=== PATIENT | male | born 1945 | race Caucasian/White ===

== ENCOUNTER 2019-05-25 12:03 | Day surgery (SDC) | payer MEDICARE, OTHER ==
[~2019-05-25] VITALS: Ht 185.4 cm; Wt 77.7 kg
[2019-05-25] VITALS (7 sets, daily range): BP systolic 123–148; BP diastolic 67–83
[2019-05-25] MEDS ORDERED: normal saline 1000ml 1,000 ML IV SCH (12:30)
[2019-05-25] MEDS ORDERED: CLOP75TA8 PO (13:19)
[2019-05-25 13:23] LABS: BASOPHILS # (AUTO) 0.1 X10'3 (0-0.2); BASOPHILS % (AUTO) 0.8 % (0-1); EOSINOPHILS # (AUTO) 0.1 X10'3 (0-0.9); EOSINOPHILS % (AUTO) 1.1 % (0-6); HEMATOCRIT 43.9 % (42.0-52.0); HEMOGLOBIN 14.7 g/dl (14.0-17.9); LYMPHOCYTES # (AUTO) 1.3 X10'3 (1.1-4.8); LYMPHOCYTES % (AUTO) 18.7 % (21-51); MEAN CORPUSCULAR HEMOGLOBIN 30.3 PG (27.0-31.0); MEAN CORPUSCULAR HGB CONC 33.6 g/dL (33.0-36.5); MEAN CORPUSCULAR VOLUME 90.3 FL (78-98); MEAN PLATELET VOLUME 9.4 FL (7.4-10.4); MONOCYTES # (AUTO) 0.6 X10'3 (0-0.9); MONOCYTES % (AUTO) 8.2 % (2-12); NEUTROPHILS # (AUTO) 5.1 X10'3 (1.8-7.7); NEUTROPHILS % (AUTO) 71.2 % (42-75); PLATELET COUNT 162 X10'3 (140-440); RED BLOOD COUNT 4.86 X10'6 (4.70-6.10); RED CELL DISTRIBUTION WIDTH 14.2 % (11.5-14.5); WHITE BLOOD COUNT 7.1 X10'3 (4.5-11.0)
[2019-05-25] MEDS ORDERED: METO50TA16 PO (13:25)
[2019-05-25] MEDS ORDERED: COU1T PO (13:25)
[2019-05-25] MEDS ORDERED: FLO0.4C PO (13:25)
[2019-05-25] MEDS ORDERED: LOVA20TA2 PO (13:25)
[2019-05-25] MEDS ORDERED: ZOLP10TA PO (13:25)
[2019-05-25] MEDS ORDERED: LISI-600 PO (13:25)
[2019-05-25] MEDS ORDERED: CLOP75TA15 PO (13:25)
[2019-05-25] MEDS ORDERED: fentaNYL/PF 50MCG/1 ML 2ML syringe ONE ×2 (13:34→14:38)
[2019-05-25] MEDS ORDERED: ceFAZolin 1000mg inj ONE (13:35)
[2019-05-25] MEDS ORDERED: vancomycin 1,000mg inj ONE (13:35)
[2019-05-25] MEDS ORDERED: midazolam 2 mg/2 ml injection ONE ×5 (13:35→15:10)
[2019-05-25] MEDS ORDERED: LIDOcaine 1% W/epiNEPHrine 1:100,000 20ml vial ONE (13:35)
[2019-05-25 13:38] LABS: ALBUMIN 3.3 G/DL (3.4-5.0); ANION GAP 7 (8-16); BLOOD UREA NITROGEN 13 MG/DL (7-18); BUN/CREATININE RATIO 16.7 (5.4-32.0); CALCIUM 8.3 MG/DL (8.5-10.1); CHLORIDE 108 MMOL/L (99-107); CREATININE 0.78 MG/DL (0.60-1.10); GLUCOSE 86 MG/DL (70-104); POTASSIUM 3.9 MMOL/L (3.5-5.1); SODIUM 143 MMOL/L (135-145); TOTAL CARBON DIOXIDE 28.4 MMOL/L (24-32); eGFR > 90 ML/MIN
[2019-05-25] MEDS ORDERED: metoprolol tartrate 1mg/ml inj IV ONE (14:55)
== END 2019-05-25 17:30 | disposition home or self-care (01) ==
LOC: SSTAY O 12:03
PROVIDERS: ATTEND Internal Medicine Cardiovascular Disease
DX: Z45.02 Encounter for adjustment and management of automatic implantable cardiac defibrillator (principal); I25.2 Old myocardial infarction; E78.5 Hyperlipidemia, unspecified; I10 Essential (primary) hypertension; I25.10 Atherosclerotic heart disease of native coronary artery without angina pectoris; Z95.5 Presence of coronary angioplasty implant and graft; Z98.890 Other specified postprocedural states; Z79.01 Long term (current) use of anticoagulants; Z79.899 Other long term (current) drug therapy; Z88.5 Allergy status to narcotic agent
CPT/HCPCS: 33263; 36415; 80048; 83735; 85025; 85610; 93005; C1721; J0690; J2250; J3010; J3370; 99152; 99153; A4620; J3490; J7030